=== PATIENT | female | born 1955 | race Caucasian/White ===

== ENCOUNTER → 2016-10-16 | Day surgery (SDC) | payer OTHER ==
[~2016-10-16] MED LIST: (NONE)1 TAB PO; ALBUTEROL 0.5ML INH; ALBUTEROL MININEB NEB; ALBUTEROL17 GM INH; ALLEGRA PO; ALLEGRA180 MG PO; ALLERGY SHOTS; AMLODIPINE BESY10 MG PO; ARTAIN; ARTANE; ARTANE2 M1 DOB; ARTANE2 M1 PO; ARTANE2 MG PO; AUGMENTIN875 MG PO; CLEOCIN150 MG PO; CLINDAMYCIN HC300 MG PO; COMBIVENT MININEB INH; COUMADIN5 MG PO; COUMADIN7.5 MG PO; DANTRIUM PO; DANTRIUM100 MG; DANTRIUM100 MG PO; DIAZEPAM10 MG PO; DOC-Q-LACE100 MG PO; DOCU SOFT100 M1 PO; DOXYCYCLINE HY100 M3 PO; DURAGESIC TOP; EFFEXOR-XR150 MG PO; EFFEXOR75 M2 PO; EFFEXOR75 MG PO; ESTRATEST TABLE1 TAB; ESTRATEST TABLE1 TAB PO; GABAPENTIN400 M2 PO; HYDROCODON-ACE1 EAC5; HYDROCODON-ACE1 EAC5 PO; IRON325 ( 652 PO; K-DUR20 ME1 PO; LASIX PO; LEVAQUIN PO; LEVAQUIN750 M1 PO; LORTAB 10-3251 EACH; LORTAB 10-5001 EACH PO; LORTAB 7.5-5001 TAB PO; LOVENOX40 MG/0.4 INJ; MELOXICAM15 MG PO; METHADONE; METHADONE HCL10 MG PO; METHADONE PO; METHADOSE10 M1 PO; METHADOSE10 MG PO; METHADOSE5 MG; METRONIDAZOLE250 MG PO; MIRALAX17 GM PO; MOBIC PO; MONTELUKAST SOD10 MG PO; MUCINEX D ER T1 EACH; NASONEX17 GM; NASONEX17 GM INH; NEURONTIN600 MG PO; NEXIUM PO; NORCO 10/325 TA1 TAB; NORFLEX100 MG; NORFLEX100 MG PO; OMEPRAZOLE40 M1 PO; OMEPRAZOLE40 MG PO; OXAZEPAM PO; OXAZEPAM10 MG PO; OXYCODON HCL-1 UDTA1 PO; OXYCODONE-APAP1 EAC5 PO; OXYGEN; PATANASE; PATANASE30.5 GM INH; PERCOCET 10-651 EACH; PERCOCET 10/3251 TAB; PERCOCET 10/3251 TAB PO; PERCOCET10 PO; PERCOCET5/325 PO; PHENERGAN; PHENERGAN PO; PHENERGAN25 M1 PO; PHENERGAN25 MG; PHENERGAN25 MG PO; PLAQUENIL200 MG; PLAQUENIL200 MG PO; POTASSIUM CHLO10 ME2 PO; PREDNISONE PO; PREDNISONE10 MG PO; PRILOSEC; PRILOSEC PO; PRO AIR INHALER; PROAIR HFA8.5 GM IN; QVAR7.3 G1 INH; ROZEREM8 MG PO; SERAX; SINGULAIR PO; SINGULAIR5 MG PO; SPIRIVA18 MCG INH; SYMBICORT INH; SYMBICORT80 INH; TESSALON PERLE100 M1 PO; TIZANIDINE HCL4 M1 PO; TOPAMAX200 MG PO; TRAZODONE; TRIHEXYPHENIDYL2 M1 PO; TUSSIN CF COUG118 M1 PO; TUSSINEX; VIBRAMYCIN100 M1 PO; XANAX0.5 M1 DOB; XANAX0.5 M1 PO; XANAX0.5 MG PO; ZANAFLEX; ZANAFLEX PO; ZANAFLEX4 M1; ZANAFLEX4 M1 PO; [UNRECOGNIZED DRUG - OTHER]; [UNRECOGNIZED DRUG - REMARK]
== END | disposition home or self-care (01) ==
LOC: CCSC 10:48
DX: M54.9 Dorsalgia, unspecified (principal); Z53.8 Procedure and treatment not carried out for other reasons
CPT/HCPCS: J1040; J2250

== ENCOUNTER → 2016-11-13 | Day surgery (SDC) | payer OTHER ==
--- NOTE | ~2016-11-13 | OR ---
Unit #: [id number] #: [id number] Patient: EDITH KIM [id number] [address] [place], [place] [address] [id number] O MR#: [id number] NAME: EDITH KIM ROOM: Date of Procedure: 11/13/2016 Admission Date: 11/13/2016 Surgeon: Adria Aguirre M.D. : 1955 Attending Physician: Adria Aguirre M.D. Referring Physician: Adria Aguirre M.D. Primary Care Physician: Chato Gallegos D.O. OPERATIVE REPORT PREOPERATIVE DIAGNOSES 1. Postlaminectomy syndrome. 2. Radiculopathy. 3. Back pain. 4. Degenerative disk disease. 5. Arachnoiditis. POSTOPERATIVE DIAGNOSES 1. Postlaminectomy syndrome. 2. Radiculopathy. 3. Back pain. 4. Degenerative disk disease. 5. Arachnoiditis. PROCEDURE PERFORMED Lumbar epidural steroid injection with intravenous sedation and fluoroscopic guidance for needle localization. INDICATIONS FOR PROCEDURE The patient is a 61-year-old female with previous mentioned diagnoses at 3 laminectomies for separate this cultures. She was treated medically with p.r.n. epidural steroid injections. Last injections were done several years ago. Pain then re-flare and not settle with conservative means, so the plan is to repeat an epidural steroid injection. Repeat injection done about a month ago helped to settle all components of the pain. This was some partial return. She is doing somewhat better. Based on her good partial response, pathology, and symptomatology, we are going to proceed with a repeat epidural steroid injection today. DESCRIPTION OF PROCEDURE The patient was placed in a seated position. Standard monitors were applied. 3 mg of Versed were given in divided doses for anxiolysis and sedation, which were adequate. Vital signs remained stable. Sterile prep and drape then of the lumbosacral area was performed. The skin then at the L3-L4 level was localized with 1% lidocaine. An 18-gauge BeanStockd needle was then advanced via loss of resistance technique and fluoroscopic guidance in toward the epidural space. After confirming proper positioning with fluoroscopy and radiographic contrast, 80 mg of Depo-Medrol and 4 mL of 0.5% lidocaine were deposited. The patient had some reproduction of her pain during the injection phase, this quickly abated. She otherwise tolerated the procedure well and was discharged to the recovery room in stable condition. Unit #: [id number] #: [id number] Patient: EDITH KIM Dictated by... Jen Diego/thomas TD: 11/13/2016 22:24 JOB #: [id number] OPERATIVE REPORT X Adria Aguirre MD X PROCEDURE OPERATIVE NOTE
== END | disposition home or self-care (01) ==
LOC: CCSC 07:19
DX: M96.1 Postlaminectomy syndrome, not elsewhere classified (principal); M51.16 Intervertebral disc disorders with radiculopathy, lumbar region; G03.9 Meningitis, unspecified; I25.10 Atherosclerotic heart disease of native coronary artery without angina pectoris; J44.9 Chronic obstructive pulmonary disease, unspecified
CPT/HCPCS: J1040; J2250

== ENCOUNTER → 2016-12-27 | Day surgery (SDC) | payer OTHER ==
--- NOTE | ~2016-12-27 | OR ---
Unit #: [id number] #: [id number] Patient: EDITH KIM [id number] [address] [address] [id number] O MR#: [id number] NAME: EDITH KIM ROOM: Date of Procedure: 12/27/2016 Admission Date: 12/27/2016 Surgeon: Adria Aguirre M.D. : 1955 Attending Physician: Adria Aguirre M.D. Primary Care Physician: Chato Gallegos D.O. OPERATIVE REPORT PREOPERATIVE DIAGNOSES Back pain, radiculopathy, arachnoiditis, post-laminectomy syndrome, degenerative disk disease. POSTOPERATIVE DIAGNOSES Back pain, radiculopathy, arachnoiditis, post-laminectomy syndrome, degenerative disk disease. PROCEDURE PERFORMED Lumbar epidural steroid injection with intravenous sedation and fluoroscopic guidance for needle localization. HISTORY The patient is a 61-year-old female with previously mentioned pathology. She is a nonsurgical candidate. She has severe pathology. She is treated medically with p.r.n. epidural steroid injections, which always have given her a good improvement of greater than 50% of her symptom complex pain. The pain had re-flared in the back and left lower extremity. Plan is to repeat an epidural steroid injection based on history, pathology, symptomatology, and treatment options. DESCRIPTION OF PROCEDURE The patient was placed in a seated position. Standard monitors were applied. Then, 3 mg of Versed were given for sedation and anxiolysis. Sterile prep and drape then of the lumbar area were performed. The skin then at the L3-L4 level was localized with 1% lidocaine. An 18-gauge Hustead needle was then advanced via loss of resistance technique and fluoroscopic guidance in toward the epidural space. After confirming proper positioning with fluoroscopy and radiographic contrast, 80 mg of Depo-Medrol and 4 mL of 0.125% bupivacaine were deposited. The patient tolerated the procedure otherwise well and was discharged to the recovery room in stable condition. Dictated by... Jen DiegoP/mikall TD: 12/28/2016 04:05 JOB #: [id number] Unit #: [id number] #: [id number] Patient: EDITH KIM OPERATIVE REPORT Page 1 of 1 X Adria Aguirre MD X PROCEDURE OPERATIVE NOTE
== END | disposition home or self-care (01) ==
LOC: CCSC 07:14
DX: M96.1 Postlaminectomy syndrome, not elsewhere classified (principal); M51.16 Intervertebral disc disorders with radiculopathy, lumbar region; G03.9 Meningitis, unspecified
CPT/HCPCS: J1040; J2250

== ENCOUNTER → 2017-01-22 | Outpatient (CLI) | payer OTHER ==
--- NOTE | ~2017-01-22 | CR269 ---
[facility] A Service of [facility] & [facility] RADIOLOGY TEXT RESULTS PATIENT: EDITH KIM LOCATION: [facility] : [birth year] UNIT #: [id number] AGE: [address]: BOBBI DIAZ DO SEX: F ORDER DR: [id number] [facility] [address] [place], [place] [address] [id number] O MR#: [id number] Acc #: [id number] NAME: EDITH KIM. : 1955 SEX: F STUDY DATE/TIME: 01/22/2017 14:49 UNIT: [facility] ROOM: STUDY DESCRIPTION: CR Upper GI and SBFT Attending Physician: Bobbi Diaz D.O. Referring Physician: Bobbi Diaz D.O. Ordering Physician: Bobbi Diaz D.O. Primary Care Physician: Bobbi Diaz D.O. MEDICAL IMAGING REPORT This report is preliminary unless electronic signature is present EXAM Upper GI small bowel follow, 01/22/2017. INDICATION Epigastric abdominal pain and dysphasia. History of Rain fundoplication. Chronic constipation and abdominal distension. Symptoms for the last 3-4 months. FINDINGS Air-contrast upper GI series was performed followed by a small bowel follow-through. Fluoro time was 4.4 minutes. 54 total images were obtained. Comparison is made with 02/28/2010. [facility] image demonstrates stool and gas in the colon. No esophageal mucosal lesions are seen. There is narrowing of the distal esophagus which does cause obstruction to a standard barium tablet. This may be the result of the patient's prior Rain fundoplication. There is some esophageal dysmotility with tertiary contractions noted intermittently. Of note, the patient did have aspiration of thick liquid barium. This did elicit a cough reflex. The gastric mucosa is normal without fold thickening or ulceration. Some deformity of the fundus on the upright view is presumably related to the patient's prior Rain fundoplication. Duodenal bulb distends normally and does not appear scarred or ulcerated. The duodenal C-sweep is normal. Transit time through the small bowel is normal. Contrast reaches the ascending colon within 2 hours after ingestion. Small bowel is normal in caliber throughout its length. There is no evidence of bowel wall thickening. The terminal ileum is normal. IMPRESSION 1. There is aspiration of thick barium contrast. 2. There is some esophageal dysmotility with tertiary contractions [facility] A Service of [facility] RADIOLOGY TEXT RESULTS PATIENT: EDITH KIM LOCATION: [facility] : [birth year] UNIT #: [id number] AGE: [address]: BOBBI DIAZ DO SEX: F ORDER DR: intermittently noted. No esophageal mucosal lesions are seen. 3. Obstruction to a standard barium tablet at the level of the distal esophagus. This may simply be the result of the patient's Rain. I cannot completely exclude a stricture at this level. This could be better assessed with upper endoscopy if needed. 4. The stomach and duodenum appear within normal limits, other than the postoperative change from the Rain. 5. Small bowel follow-through is normal. Dictated by... Bobbi Resendiz Jr., M.D. THIS IS AN ELECTRONICALLY VERIFIED REPORT Bobbi Resendiz Jr., M.D. at 01/23/2017 6:33 PM TAD/michael TD: 01/23/2017 12:56 JOB #: [id number] MEDICAL IMAGING REPORT Page 1 of 1 COPY
== END | disposition home or self-care (01) ==
LOC: CRAD 09:30
DX: R13.19 Other dysphagia (principal); K22.4 Dyskinesia of esophagus; R10.13 Epigastric pain
CPT/HCPCS: 74245

== ENCOUNTER → 2017-01-30 | Outpatient (CLI) | payer OTHER ==
--- NOTE | ~2017-01-30 | CR150 ---
[facility] A Service of [facility] & [facility] RADIOLOGY TEXT RESULTS PATIENT: EDITH KIM LOCATION: [facility] : 51 UNIT #: [id number] AGE: [address]: Adria Aguirre MD SEX: F ORDER DR: [id number] [facility] [address] [place], [place] [address] [id number] O MR#: [id number] Acc #: [id number] NAME: EDITH KIM : 1955 SEX: F STUDY DATE/TIME: 01/30/2017 15:57 UNIT: [facility] ROOM: STUDY DESCRIPTION: CR Hip Min 2 Views Lt Attending Physician: Adria Aguirre M.D. Referring Physician: Adria Aguirre M.D. Ordering Physician: Adria Aguirre M.D. Primary Care Physician: Chato Gallegos D.O. MEDICAL IMAGING REPORT This report is preliminary unless electronic signature is present EXAM Left hip and pelvis, 01/30 INDICATION Left hip pain and weakness started several days ago. The patient is on chronic steroids. Possible avascular necrosis. FINDINGS AP pelvis was obtained in addition to a frogleg left hip. There is some residual oral contrast in the colon from a prior upper GI series. There is some axial joint space narrowing in both hips suggesting mild osteoarthritis. No fractures are seen. There is no evidence of osteonecrosis in the femoral heads. Patient is osteopenic. 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 No fractures are seen, and there is no evidence of osteonecrosis. Dictated by... Chato eRsendiz Jr., M.D. THIS IS AN ELECTRONICALLY VERIFIED REPORT Chato Resendiz Jr., M.D. at 02/01/2017 6:07 AM TAD/jessica TD: 01/31/2017 11:35 JOB #: [id number] MEDICAL IMAGING REPORT Page 1 of 1 COPY
== END | disposition home or self-care (01) ==
LOC: CRAD 15:08
DX: M25.552 Pain in left hip (principal); M16.0 Bilateral primary osteoarthritis of hip; M85.851 Other specified disorders of bone density and structure, right thigh; M85.852 Other specified disorders of bone density and structure, left thigh; Z79.52 Long term (current) use of systemic steroids
CPT/HCPCS: 73502

== ENCOUNTER → 2017-05-10 | Outpatient (CLI) | payer OTHER | END | disposition home or self-care (01) | LOC: CECH 13:00 | DX: I26.99 Other pulmonary embolism without acute cor pulmonale (principal); J44.9 Chronic obstructive pulmonary disease, unspecified; R60.9 Edema, unspecified; I35.1 Nonrheumatic aortic (valve) insufficiency; I35.8 Other nonrheumatic aortic valve disorders | CPT/HCPCS: 93306 ==